=== PATIENT | female | born 1965 | race Caucasian/White ===

== ENCOUNTER 2016-11-12 20:34 | Emergency (ER) | payer OTHER ==
[~2016-11-12] VITALS: Ht 165.1 cm; Wt 81.8 kg
[~2016-11-12 20:34] MED LIST: KLO5T PO; OMEP40CA36 PO
[2016-11-12 20:46] VITALS: BP 145/82; PULSE 72; RESP 12; O2SAT 100
[2016-11-12 21:06] LABS: BASOPHILS % (AUTO) 0.3 % (0-3); EOSINOPHILS % (AUTO) 2.5 % (0-5); MONOCYTES % (AUTO) 10.5 % (4-12); Mean Corpuscular Hemoglobin 33.3 pg (27.0-35.0); Mean Corpuscular Volume 96.3 fL (81-100); NEUTROPHILS % (AUTO) 41.3 % (40-74); Platelet Count 299 bil/L (150-400)
[2016-11-12 21:30] LABS: TROPONIN T 0.01 ug/L (0.0-0.011)
[2016-11-12 21:41] LABS: Magnesium 1.9 mg/dL (1.6-2.6)
[2016-11-12 22:53] VITALS: BP 110/55; PULSE 80; RESP 19; O2SAT 99
[2016-11-12 23:30] VITALS: BP 122/72; PULSE 75; RESP 14; O2SAT 100
--- NOTE | 2016-11-12 23:58 | ED.REPORT ---
HPI-Abd Pain F 2 and Over Date of Service Nov 12, 2016 ED Provider: Doc,Ed MD Nursing Notes Stated Complaint: SYNCOPE Chief Complaint: General Complaint Nursing Notes Reviewed: Yes Allergies: Coded Allergies: Contrast Media (Verified Adverse Reaction, Intermediate, tingling, warm all over, 07/25/14) Scheduled Omeprazole (Omeprazole) 40 Mg Capsule.dr 40 MG PO BID Scheduled PRN Clonazepam (Clonazepam) 0.5 Mg Tab 0.5 MG PO DAILY PRN PRN For Anxiety General Time Seen by MD: 23:58 Past Medical History Smoking History Never Smoker Physical Exam Initial Vital Signs Vital Signs (First) Date Time Temp Pulse Resp B/P Pulse Ox O2 Delivery O2 Flow Rate FiO2 11/12/16 20:46 36.5 72 12 145/82 100 Room Air Interpretation & Diagnostics Lab Results Interpretation Result Diagram: 11/12/16210211/12/162102 Test 11/12/16 21:03 White Blood Count 10.6th/mm3 (3.8-10.1) Red Blood Count 4.30mil/mm3 (3.90-5.20) Hemoglobin 14.3g/dL (12.0-15.6) Hematocrit 41.4% (35.0-46.0) Mean Corpuscular Volume 96.3fL (81-100) Mean Corpuscular Hemoglobin 33.3pg (27.0-35.0) Mean Corpuscular Hemoglobin Concent 34.5% (32.0-37.0) Red Cell Distribution Width 11.3% (12.3-15.4) Platelet Count 299bil/L (150-400) Neutrophils (%) (Auto) 41.3% (40-74) Lymphocytes (%) (Auto) 45.2% (14-46) Monocytes (%) (Auto) 10.5% (4-12) Eosinophils (%) (Auto) 2.5% (0-5) Basophils (%) (Auto) 0.3% (0-3) Sodium Level 133mEq/L (134-144) Potassium Level 3.4mEq/L (3.5-5.2) Chloride Level 96mEq/L (97-108) Carbon Dioxide Level 18mmol/L (18-29) Blood Urea Nitrogen 5mg/dL (6-24) Creatinine 0.58mg/dL (0.57-1.00) Estimat Glomerular Filtration Rate 158mL/min (>59) Glucose Level 112mg/dL (60-99) Calcium Level 8.7mg/dL (8.5-10.1) Magnesium Level 1.9mg/dL (1.6-2.6) Total Bilirubin 1.2mg/dL (0.0-1.2) Aspartate Amino Transf (AST/SGOT) 21U/L (0-50) Alanine Aminotransferase (ALT/SGPT) 10U/L (0-32) Alkaline Phosphatase 60U/L (25-150) Troponin T 0.010ug/L (0.0-0.011) Pro-B-Type Natriuretic Peptide 93.41pg/mL (0-249) Total Protein 7.2g/dL (6.4-8.4) Albumin 4.6g/dL (3.4-5.0) Discharge & Departure Referrals: Finn Argueta MD (PCP) Ben Whitney MD Nov 12, 2016 23:58 Qiana Pike Nov 13, 2016 00:00
[2016-11-13] MEDS ORDERED: 0.9% Sodium Chloride 1,000 ML IV ONE
--- NOTE | 2016-11-13 00:01 | ED.REPORT ---
HPI-Abd Pain F 40 and Over Date of Service Nov 13, 2016 ED Provider: Ben Whitney MD Patient is a 51 year old female with a history of hypertension and GERD who presents to the ED via EMS following a brief syncopal episode just prior to arrival. The patient was out for an anniversary dinner and had just eaten her appetizer (calamari). Patient had also consumed a glass of champagne and wine prior to this. She states that the world suddenly went black and she became light headed. She then had a brief syncopal episode lasting for 30-60 seconds, all while sitting. Her states that she was speaking to him when she suddenly faded out. The patient vomited 2-3x after she became conscious. Patient was given Phenergan by EMS. Patient states that she has mild heartburn prior to her meal, taking Pepcid. She states that she has a normal day otherwise. The patient admits that she did not sleep well this week, as her was out of town, and her heartburn has generally been acting up. She denies chest pain or shortness of breath. Nursing Notes Stated Complaint: SYNCOPE Chief Complaint: General Complaint Nursing Notes Reviewed: Yes Allergies: Coded Allergies: Contrast Media (Verified Adverse Reaction, Intermediate, tingling, warm all over, 07/25/14) Scheduled Omeprazole (Omeprazole) 40 Mg Capsule.dr 40 MG PO BID Scheduled PRN Clonazepam (Clonazepam) 0.5 Mg Tab 0.5 MG PO DAILY PRN PRN For Anxiety General Time Seen by MD: 23:58 Chief Complaint Other (syncope) Hx Obtained From: Patient Arrived By: Ambulance Sudden in Onset?: No Onset Occurred: Just prior to arrival Symptom Duration: 1 - 15 minutes Severity: Current: No pain currently Severity: Maximum: No pain Recent Healthcare: No recent doctor visit, No recent hospitalization Similar Sx Previous: No Past Medical History Past Medical History Hypertension, GERD, Migraines, Anxiety Past Surgical History Left foot Moreno's neuroma, , Laparoscopy Smoking History Never Smoker Social History Alcohol Use: 1-3 per week Drug Use: Denies drug use Other Social History: Good social support, , Local resident Ambulatory Status Independent Review of Systems Respiratory: Denies: Shortness of breath Cardiovascular: Denies: Chest pain GI: Reports: Nausea, Vomiting Complete sys rev & neg: except as marked. Neurologic: Reports: Change LOC, Dizziness, Lightheaded, Syncope Physical Exam Vital Signs Vital Signs (First) Date Time Temp Pulse Resp B/P Pulse Ox O2 Delivery O2 Flow Rate FiO2 11/12/16 20:46 36.5 72 12 145/82 100 Room Air Initial VS: Reviewed, Vital signs normal Head / Eyes: Atraumatic, Normocephalic, PERRL ENT: Conjunctiva normal, No scleral icterus Neck: Supple, Full range of motion Extremities: Vascular intact, Neuro intact, No swelling, No tenderness Skin: Warm, Dry, No cyanosis Neurologic: Alert, Oriented, Nonfocal Psychiatric: Mood/affect normal, Behavior normal, Normal thought content General/Constitutional: Awake, Alert, No acute distress Respiratory / Chest: Breath sounds NL, Breath sounds = bilat, No respiratory distress, No rales, No rhonchi, No wheezing Cardiovascular: Heart rate NL, Regular rhythm, Heart sounds NL, No murmurs Abdomen: Soft, Non-tender, No guarding, No rebound Back: Painless range of motion Interpretation & Diagnostics Lab Results Interpretation Result Diagram: 11/12/16210211/12/162102 Test 11/12/16 21:03 11/13/16 00:25 White Blood Count 10.6th/mm3 (3.8-10.1) Red Blood Count 4.30mil/mm3 (3.90-5.20) Hemoglobin 14.3g/dL (12.0-15.6) Hematocrit 41.4% (35.0-46.0) Mean Corpuscular Volume 96.3fL (81-100) Mean Corpuscular Hemoglobin 33.3pg (27.0-35.0) Mean Corpuscular Hemoglobin Concent 34.5% (32.0-37.0) Red Cell Distribution Width 11.3% (12.3-15.4) Platelet Count 299bil/L (150-400) Neutrophils (%) (Auto) 41.3% (40-74) Lymphocytes (%) (Auto) 45.2% (14-46) Monocytes (%) (Auto) 10.5% (4-12) Eosinophils (%) (Auto) 2.5% (0-5) Basophils (%) (Auto) 0.3% (0-3) Sodium Level 133mEq/L (134-144) Potassium Level 3.4mEq/L (3.5-5.2) Chloride Level 96mEq/L (97-108) Carbon Dioxide Level 18mmol/L (18-29) Blood Urea Nitrogen 5mg/dL (6-24) Creatinine 0.58mg/dL (0.57-1.00) Estimat Glomerular Filtration Rate 158mL/min (>59) Glucose Level 112mg/dL (60-99) Calcium Level 8.7mg/dL (8.5-10.1) Magnesium Level 1.9mg/dL (1.6-2.6) Total Bilirubin 1.2mg/dL (0.0-1.2) Aspartate Amino Transf (AST/SGOT) 21U/L (0-50) Alanine Aminotransferase (ALT/SGPT) 10U/L (0-32) Alkaline Phosphatase 60U/L (25-150) Pro-B-Type Natriuretic Peptide 93.41pg/mL (0-249) Total Protein 7.2g/dL (6.4-8.4) Albumin 4.6g/dL (3.4-5.0) D-Dimer < 0.5mg/L (<0.50) Troponin T 0.010ug/L (0.0-0.011) Lab values outside NL range: no clinical significance. Lab Results Interpretation: Troponin negative 2, d-dimer slightly elevated. ECG Interpretation Time: 21:36 Interpreted by: ED physician Normal ECG Interpretation: Normal rate, Normal sinus rhythm, No acute ischemic changes Time: 00:35 Interpreted by: ED physician Normal ECG Interpretation: Normal rate (80), Normal sinus rhythm, No acute ischemic changes Re-Eval/Medical Decision Med Decision/Clinical Course 51-year-old female with a history of increased stress presents with a syncopal episode. She had had 1-1/2 drinks of alcohol prior to the episode. She describes no palpitations prior to the episode. She had no history of vomiting prior to the episode but did have an episode afterwards. She now is feeling fine. Workup here in the emergency room includes normal vital signs, no significant orthostatic changes in her vital signs, normal labs to include troponin 2 but she did have a mild elevation of the d-dimer. Syncope can be a presenting symptom for PE so a chest CT scan was performed which was negative. I do not find a serious cause for her syncope. It was likely a combination of more minor things including the vasodilation from the alcohol and increased stress.She will be discharged home with instructions to follow up as needed. Source of Hx: Old records Re-Evaluation/Progress #1: Time of Eval: 00:15 Re-Evaluation/Progress Note: Informed the patient of the treatment plan. All questions were addressed. Re-Evaluation/Progress #2: Time of Eval: 01:21 Patient Status: Condition improved Re-Evaluation/Progress Note: Repeat EKG and labs were normal. Patient understands and agrees with the plan to be discharged home. Discharge instructions and follow-up discussed. All questions were addressed. Return to the ED warnings given. Counseled Regarding: Diagnosis, Lab results, Need for follow-up, When/why to return to ED Discharge & Departure Primary Impression: Syncope Syncope type: vasovagal syncope Qualified Code: R55 - Syncope and collapse Disposition: Home Discharge Condition All VS Reviewed: Yes Condition: Stable Patient Instructions: Syncope (ED) Additional Instructions: No serious cause for your fainting is found. Specifically, no irregular heartbeat is noted on the monitor, cardiac workup to include troponin 2 and EKG 2 is normal, D dimer test screening for blood clots in the lungs is normal , and all of your labs are essentially normal. I suspect that this is a "perfect storm" of relatively minor causes including increased stress, poor oral intake, mild alcohol intake, and others. Drink plenty of fluids. Contact your doctor if you have further problems. Call me [phone] between the hours of 9pm and 6am for the next couple of nights if you have any questions or concerns. Referrals: Finn Argueta MD (PCP) [employer] Attestation Portions of this note were transcribed by Qiana Pike. I, Dr. Whitney personally performed the history, physical exam and medical decision-making; I reviewed and confirmed the accuracy of the information in the transcribed note. Signed by: Tegan Britton, 11/13/2016 0122 copies to: Finn Argueta MD, Howard L MD Nov 13, 2016 00:01 Qiana Pike Nov 13, 2016 00:11
[2016-11-13 01:42] VITALS: BP 114/61; PULSE 87; RESP 17; O2SAT 96
== END 2016-11-13 01:32 | disposition home or self-care (01) ==
LOC: EDUNIT# 20:34 → SED 20:34 → EDBD 20:34 → SED 11-13 01:32
DX: R55 Syncope and collapse (principal); I10 Essential (primary) hypertension; K21.9 Gastro-esophageal reflux disease without esophagitis
CPT/HCPCS: 36415; 80053; 83735; 83880; 84484; 85025; 85379; 93005; 96360; 99285; J7030